=== PATIENT | female | born 1960 | race Caucasian/White ===

== ENCOUNTER 2021-08-29 12:43 | Outpatient (CLI) | payer BC | END 2021-08-29 12:44 | disposition home or self-care (01) | LOC: SCSMRI 12:43 | PROVIDERS: ATTEND Orthopaedic Surgery | DX: M24.811 Other specific joint derangements of right shoulder, not elsewhere classified (principal); S46.911A Strain of unspecified muscle, fascia and tendon at shoulder and upper arm level, right arm, initial encounter ==

== ENCOUNTER 2021-10-15 15:23 | Outpatient (CLI) | payer BC ==
[2021-10-15 16:40] LABS: #Basophils 0.1 10x3/uL (0.0-0.2); #Eosinphils 0.3 10x3/uL (0.0-0.5); #Monocytes 0.8 10x3/uL (0.0-1.1); #Neutrophils 4.5 10x3/uL (1.5-8.4); %Basophils 0.5 % (0.0-2.0); %Eosinophils 2.9 % (0.0-6.0); %Lymphocytes 45.2 % (18.0-47.0); %Monocytes 7.7 % (0.0-10.0); %Neutrophils 43.4 % (40.0-75.0); Hemoglobin 12.4 g/dL (12.0-15.5); Mean Corpuscular Hemoglobin 29.7 pg (27.0-33.0); Mean Corpuscular Volume 90.2 fl (81.6-98.3); Mean Platelet Volume 9.6 fl (7.4-10.4); Platelet Count 343 10x3/uL (150-450); RBC Distribution Width 12.7 % (11.5-14.5); Red Blood Cell (RBC) Count 4.17 10x6/uL (3.90-5.03); White Blood Cell (WBC) Count 10.3 10x3/uL (3.5-10.5)
[2021-10-15 17:04] LABS: Anion Gap 15 mmol/L (10-20); BUN (Urea Nitrogen) 12 mg/dL (9.8-20.1); Calc. Creatinine Clearance 0 mL/min (70-130); Calcium 9.3 mg/dL (7.8-10.44); Carbon Dioxide 29 mmol/L (23-31); Chloride 100 mmol/L (98-107); Potassium 3.8 mmol/L (3.5-5.1); Sodium 140 mmol/L (136-145)
[2021-10-15 17:23] LABS: Glucose 75 mg/dL (80-115)
== END 2021-10-15 15:24 | disposition home or self-care (01) ==
LOC: LABBT 15:23
PROVIDERS: ATTEND Orthopaedic Surgery
DX: Z01.818 Encounter for other preprocedural examination (principal); M75.121 Complete rotator cuff tear or rupture of right shoulder, not specified as traumatic; Z20.822 Contact with and (suspected) exposure to COVID-19
CPT/HCPCS: 71046; 80048; 85025; 93005; 93010; U0003; U0005

== ENCOUNTER 2021-10-18 10:16 | Day surgery (SDC) | payer BC ==
[2021-10-15 13:03] VITALS: BMI 26.1
[2021-10-18] MEDS ORDERED: fentaNYL Citrate/PF 100 MCG/2 ML SYRINGE ONE (13:07)
[2021-10-18] MEDS ORDERED: Midazolam HCl 2 mg/2 ml Vial ONE (13:27)
[2021-10-18] MEDS ORDERED: Fentanyl 100 MCG/2 ML VIAL ONE (13:27)
[2021-10-18] MEDS ORDERED: Lidocaine 1% w/Epinephrine 1:100K 20 ML VIAL ONE (13:46)
[2021-10-18] MEDS ORDERED: Glycopyrrolate 0.2 MG/ML 5 ML SYRINGE ONE (14:20)
[2021-10-18] MEDS ORDERED: PROPOFOL 200 MG/20 ML VIAL ONE (14:20)
[2021-10-18] MEDS ORDERED: Dexamethasone 20 MG/5 ML VIAL ONE (14:20)
[2021-10-18] MEDS ORDERED: Lidocaine 1% PF 5 ML VIAL ONE (14:20)
[2021-10-18] MEDS ORDERED: Rocuronium Bromide 10 MG/ML (10ML VIAL) ONE (14:20)
[2021-10-18] MEDS ORDERED: Ondansetron PF 4 MG/2 ML Vial ONE (14:20)
[2021-10-18] MEDS ORDERED: Ropivacaine 0.5% HCl/PF (150 MG/30 ML VIAL) ONE (14:20)
[2021-10-18] MEDS ORDERED: ePHEDrine 50 MG/ML VIAL ONE (14:20)
[2021-10-18] MEDS ORDERED: HYDROmorphone 2 MG/ML VIAL ONE (15:46)
[2021-10-18] MEDS ORDERED: ePHEDrine Sulfate 50 MG/10 ML VIAL ONE (15:50)
[2021-10-18] MEDS ORDERED: SUGAMMADEX SODIUM 200 MG/2 ML VIAL ONE (15:52)
[2021-10-18] MEDS ORDERED: traMADol HCl 50 MG TAB PO PRN ×2 (16:30)
[2021-10-18] MEDS ORDERED: Promethazine HCl 25 MG/ML VIAL IM PRN (16:30)
[2021-10-18] MEDS ORDERED: Ropivacaine 0.2% 550 ML 550 ML NERVE BLCK SCH (16:30)
[2021-10-18] MEDS ORDERED: Zolpidem Tartrate 5 MG TAB PO PRN (16:30)
[2021-10-18] MEDS ORDERED: HYDROcodone/Acetaminophen 5/325 mg Tablet PO PRN ×2 (16:30)
[2021-10-18] MEDS ORDERED: Ketorolac Tromethamine 30 MG/ML VIAL IVP PRN (16:30)
[2021-10-18] MEDS ORDERED: Ondansetron PF 4 MG/2 ML Vial IVP PRN (16:30)
[2021-10-18] MEDS ORDERED: Labetalol HCl 100 MG/20 ML VIAL ONE (16:36)
[2021-10-18] MEDS ORDERED: HYDROcodone/Acetaminophen 5/325 mg Tablet ONE (17:29)
== END 2021-10-18 18:40 | disposition home or self-care (01) ==
LOC: SDC 10:16
PROVIDERS: ATTEND Orthopaedic Surgery
PROC: 0LM14ZZ Reattachment of Right Shoulder Tendon, Percutaneous Endoscopic Approach (ICD-10-PCS; principal; 2021-10-18)
PROC: 0RHJ04Z Insertion of Internal Fixation Device into Right Shoulder Joint, Open Approach (ICD-10-PCS; principal; 2021-10-18)
PROC: 3E0T3BZ Introduction of Anesthetic Agent into Peripheral Nerves and Plexi, Percutaneous Approach (ICD-10-PCS; principal; 2021-10-18)
PROC: 0RNJ4ZZ Release Right Shoulder Joint, Percutaneous Endoscopic Approach (ICD-10-PCS; principal; 2021-10-18)
PROC: 0LS30ZZ Reposition Right Upper Arm Tendon, Open Approach (ICD-10-PCS; principal; 2021-10-18)
DX: M75.121 Complete rotator cuff tear or rupture of right shoulder, not specified as traumatic (principal); M25.811 Other specified joint disorders, right shoulder; S46.211A Strain of muscle, fascia and tendon of other parts of biceps, right arm, initial encounter; I10 Essential (primary) hypertension; Z79.899 Other long term (current) drug therapy
CPT/HCPCS: 93005; 93010; A4306; C1713; J1100; J1170; J2250; J2405; J2704; J2795; J3010; J3490

== ENCOUNTER 2022-04-24 10:18 | Outpatient (CLI) | payer BC ==
[2022-04-24] MEDS ORDERED: Magnevist 469MG/ML 20 ML VIAL ONE (11:46)
== END 2022-04-24 10:19 | disposition home or self-care (01) ==
LOC: MRI 10:18
PROVIDERS: ATTEND Physician Assistant
DX: M51.16 Intervertebral disc disorders with radiculopathy, lumbar region (principal); M47.26 Other spondylosis with radiculopathy, lumbar region; M47.27 Other spondylosis with radiculopathy, lumbosacral region
CPT/HCPCS: 72158; A9579